=== PATIENT | male | born 1960 | race Caucasian/White ===

== ENCOUNTER 2025-01-15 23:35 | Emergency (ER) | payer MEDICARE, MEDICAID ==
[~2025-01-15] VITALS: Ht 185.4 cm; Wt 83.2 kg
[2025-01-16] MEDS: LIDOcaine 1% W/epiNEPHrine 1:100,000 20ml vial SQ ONE (00:23)
[2025-01-16 01:10] LABS: MEAN PLATELET VOLUME 6.8 FL (7.4-10.4); RED CELL DISTRIBUTION WIDTH 13.2 % (11.5-14.5)
[2025-01-16 01:11] LABS: CREATININE 0.85 MG/DL (0.60-1.10); TOTAL CARBON DIOXIDE 21.1 MMOL/L (24-32); eCRCL 99 ML/MIN; eGFR > 90 ML/MIN
[2025-01-16 02:47] VITALS: BP 118/80; PULSE 60; RESP 18; O2SAT 95
--- NOTE | 2025-01-16 04:18 | Physician Documentation ---
History of Present Illness ~ Chief Complaint: Mechanical Fall Stated Complaint: L ARM LAC Time Seen by MD: 23:42 Mode of Arrival: EMS HPI 64 year old male fell at home, struck left arm on furniture and sustained laceration to L forearm. No other injury, no head strike, is not on blood thinners, walked immediately afterward and reports no hip pain. Tetanus within 5 Years?: Yes Medication Reconciliation Allergies: Coded Allergies: No Known Allergies (Unverified , 01/15/25) Review of Systems All Other Systems at this time: Reviewed and Negative Physical Exam Vital Signs: RN Vital Signs have been reviewed: Yes, Temperature: 97.7, Source: Oral, Heart Rate: 60, Respiratory Rate: 18, BP: 118/80, Pulse Oximetry: 95, Weight: 83.180 Physical Exam HEENT: PERRL, moist oral mucosa, EOMI Pulmonary: No respiratory distress MSK: no deformity Skin: w/d/i, no rash; L forearm with 7cm full thickness laceration dorsally Neuro: alert, nonfocal Psych: normal affect Procedures Laceration Repair : Length (cm): 7 Anesthesia: Lidocaine w/ Epi Volume Anesthetic (mls): 10 Prep: irrigated by nurse Debrided: minimal Undermining: none Margins: revised Foreign Body: not identified Repaired: skin, subcutaneous Wound Repaired With: sutures Suture Size/Type: 4-0, ethilon Number of Superficial Sutures: 12 Layer Closure?: Yes Deep Layer Suture Size/Type: 4-0, vicryl Number Deep Layer Sutures: 6 Dressing Applied: simple Splint Applied?: No Sling Applied?: No Tolerated Procedure Well?: yes, no complications Procedure Note horizontal mattress technique Progress Results/Orders Results/Orders Orders - MELVINA DIA MD Urinalysis, Cult If Indicated (01/16/25 00:21) Completed Orders - MELVINA DIA MD Lidocaine 1% W/Epi 1:100,000 (Xylocaine (01/16/25 00:05) Cbc/Diff (01/16/25 00:21) CMP (01/16/25 00:21) Medications Received in ER Medications (Trade) Dose Ordered Sig/Betsy Route PRN Reason Start Time Stop Time Status Last Admin Dose Admin (Xylocaine 1%-EPI 1:100,000) 20 ml ONCE ONCE SQ 01/16/25 00:05 01/16/25 00:06 DC 01/16/25 00:23 20 ML Vital Signs 01/15/25 01/16/25 01/16/25 01/16/25 23:41 00:00 00:00 02:47 Temp 97.7 Pulse 60 60 60 Resp 14 18 16 18 B/P (MAP) 98/61 111/72 (85) 118/80 (93) Pulse Ox 94 99 95 Laboratory Tests Test 01/16/25 00:24 White Blood Count 6.8 Red Blood Count 4.36 L Hemoglobin 13.9 L Hematocrit 40.1 L Mean Corpuscular Volume 92.1 Mean Corpuscular Hemoglobin 31.8 H Mean Corpuscular Hemoglobin Concent 34.6 Red Cell Distribution Width 13.2 Platelet Count 170 Mean Platelet Volume 6.8 L Neutrophils (%) (Auto) 63.5 Lymphocytes (%) (Auto) 24.3 Monocytes (%) (Auto) 9.4 Eosinophils (%) (Auto) 2.3 Basophils (%) (Auto) 0.5 Neutrophils # (Auto) 4.3 Lymphocytes # (Auto) 1.7 Monocytes # (Auto) 0.6 Eosinophils # (Auto) 0.2 Basophils # (Auto) 0.0 CBC Comment Sodium Level 132 L Potassium Level 3.7 Chloride Level 99 Carbon Dioxide Level 21.1 L Anion Gap 12 Blood Urea Nitrogen 15 Creatinine 0.85 Estimated GFR/1.73 m2 > 90 BUN/Creatinine Ratio 17.6 Glucose Level 87 Calcium Level 8.8 Total Bilirubin 0.3 Aspartate Amino Transf (AST/SGOT) 18 Alanine Aminotransferase (ALT/SGPT) 14 Alkaline Phosphatase 73 Total Protein 6.8 Albumin 3.6 Globulin 3.2 Albumin/Globulin Ratio 1.1 Chemistry Comments Medical Decision Making Findings 64 year old male with laceration to L forearm. Cleansed and repaired without complication. Labs unremarkable. Will road test and d/c. Differential Dx:Considerations: Include: Closed head injury, Fracture(s), Contusion(s), Hematoma(s), Laceration(s) Departure Disposition: 01 HOME / SELF CARE / HOMELESS Impression: Primary Impression: Laceration Condition: Stable Discharge Instructions: Laceration Care, Adult Referrals: NO PRIMARY CARE PROVIDER (PCP) Education Educated: Patient Educated regarding: diagnosis, treatment, prognosis, need for follow up Signature Scribe Signature: . Attestation: . MELVINA DIA MD Jan 16, 2025 04:18
[2025-01-16 06:06] VITALS: TEMP 97.7
== END 2025-01-16 06:07 | disposition home or self-care (01) ==
LOC: ER 23:37 → EDBD 23:37 → ER 01-16 06:07
DX: S51.812A Laceration without foreign body of left forearm, initial encounter (principal); W08.XXXA Fall from other furniture, initial encounter; Y93.89 Activity, other specified; Y92.009 Unspecified place in unspecified non-institutional (private) residence as the place of occurrence of the external cause; Y99.8 Other external cause status
CPT/HCPCS: 12032; 36415; 80053; 85025; 99284; A6402; A6449; J3490; Z7610

== ENCOUNTER 2025-03-19 13:59 | Emergency (ER) | payer MEDICARE, MEDICAID ==
[~2025-03-19] VITALS: Ht 186.7 cm; Wt 88.1 kg
[2025-03-19 14:01] VITALS: TEMP 97.6
--- NOTE | 2025-03-19 14:17 | ELECTROCARDIOGRAPH REPORT ---
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
--- NOTE | 2025-03-19 14:40 | RADIOLOGY REPORT ---
CHEST RADIOGRAPH Indication: Stroke Alert Technique: Single frontal view of the chest was obtained Comparison: DI CHEST,SINGLE VIEW on DOS: 05/24/24, DI CHEST,SINGLE VIEW on DOS: 04/08/24, CHEST,SINGLE VIEW on DOS: 06/27/21 FINDINGS: Lines and Tubes: None Lungs: Bronchovascular crowding due to low lung volumes with diffuse interstitial prominence. Right-sided suggested neurostimulator is noted with the generator overlying the right chest wall and the wires / leads extending cephalad. Pleura: No effusion. No pneumothorax. Cardiomediastinal contours: Borderline cardiomegaly Bones: No acute osseous abnormality. Partially visualized thoracolumbar fixation hardware. IMPRESSION: Bronchovascular crowding due to low lung volume with possible underlying pulmonary vascular congestion/ atypical pneumonia.
[2025-03-19 14:44] LABS: MEAN PLATELET VOLUME 6.4 FL (7.4-10.4); RED CELL DISTRIBUTION WIDTH 13.0 % (11.5-14.5)
[2025-03-19 14:55] LABS: APTT 26 SECONDS (22-32); INR 1.0 INR
[2025-03-19 14:57] LABS: CREATININE 0.84 MG/DL (0.60-1.10); TOTAL CARBON DIOXIDE 28.9 MMOL/L (24-32); eCRCL 101 ML/MIN; eGFR > 90 ML/MIN
--- NOTE | 2025-03-19 17:50 | Physician Documentation ---
History of Present Illness ~ Chief Complaint: Dizziness Stated Complaint: WEAKNESS/SLURRED SPEECH Time Seen by MD: 17:17 Source: patient Mode of Arrival: EMS Exam Limitations: no limitations HPI Patient presents secondary to dizziness. He states he woke up with vertigo this morning. He has had right ear "tickling for the past two weeks. He was evaluated by his primary care provider and reported his ears looked normal. He states it feels like his head is spinning. No headaches. No fevers or chills. No shortness a breath. Does complain of tinnitus. No photophobia. Was asked, but otherwise denies review of systems. 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 No other neurologic symptoms reported. Was asked, but otherwise denies review of systems. Constitutional: Denies: chills, fever Eyes: Reports: no symptoms reported; Denies: blurred vision, double vision ENT: Reports: ear ringing; Denies: ear bleeding, ear discharge, hearing loss, nose pain, nose bleeding, nose congestion, throat pain, throat swelling Respiratory: Denies: cough, orthopnea, shortness of breath Cardiovascular: Reports: lightheadedness; Denies: chest pain, syncope, palp itations Gastrointestinal: Denies: abdominal pain, nausea, vomiting Neurological: Reports: dizziness; Denies: speech problem, headache, fainting, left sided numbness, right sided numbness, left sided weakness, right sided weakness Musculoskeletal: Reports: no symptoms reported Integumentary: Reports: no symptoms reported Allergic/Immunologic: Reports: no symptoms reported Hematologic/Lymphatic: Reports: no symptoms reported Physical Exam Vital Signs: RN Vital Signs have been reviewed: Yes, Temperature: 97.6, Source: Oral, Heart Rate: 63, Respiratory Rate: 19, BP: 139/88, Pulse Oximetry: 98, Kumar ght: 88.100 Oxygen Flow Rate: 0 Pulse Oximetry Reflects: adequate oxygenation Physical Exam General: Awake, alert, oriented. No apparent distress Neck: Supple. Normal range of motion. No JVD HEENT: Normocephalic. Pupils equal and reactive to light. There is no nystagmus. Ear exam. Bilateral external auditory canals are without erythema or swelling. Tympanic membrane is pearly obando with normal light reflex. There is no bulging of the tympanic membrane. Trachea is midline. Oropharynx is without erythema, cobblestoning. Uvula is midline and raises normally with phonation. Respiratory: Lungs are clear to auscultation bilaterally. No respiratory distress. Chest: Normal shape and size. No accessory muscle use. Cardiovascular: Regular rate and rhythm. S1-S2. No murmur, gallop, rub. Extremities: No lower extremity edema, cyanosis or clubbing. Neuro: Cranial nerves II-XII grossly intact. Motor strength 5/5 in all four extremities.Sensation symmetric and intact to light touch throughout. Finger to nose intact, heel to maher intact, and rapid alternating hand movement intact. No pronator drift. No Deficits were appreciated. Speech somewhat slow. Not slurred. Psychiatric: Normal mood and affect. Skin: Normal color. Warm and dry. Progress Results/Orders Results/Orders Vital Signs 03/19/25 03/19/25 03/19/25 03/19/25 14:01 14:28 14:29 15:00 Temp 97.6 Pulse 64 65 61 Resp 18 18 17 B/P (MAP) 139/89 132/85 (101) 143/123 (130) Pulse Ox 96 97 97 97 O2 Delivery Room Air* O2 Flow Rate 0 0 0 0 FiO2 21 03/19/25 03/19/25 03/19/25 03/19/25 15:15 15:30 15:58 16:01 Pulse 62 63 63 Resp 18 13 20 19 B/P (MAP) 140/91 (107) 159/98 (118) 139/88 (105) Pulse Ox 96 97 98 O2 Flow Rate 0 0 0 03/19/25 03/19/25 03/19/25 17:00 18:58 20:15 Pulse 66 69 Resp 20 19 18 B/P (MAP) 157/95 (115) 142/95 Pulse Ox 96 98 O2 Flow Rate 0 Laboratory Tests Test 03/19/25 14:26 White Blood Count 6.2 Red Blood Count 4.45 L Hemoglobin 14.2 Hematocrit 40.9 L Mean Corpuscular Volume 92.0 Mean Corpuscular Hemoglobin 31.9 H Mean Corpuscular Hemoglobin Concent 34.7 Red Cell Distribution Width 13.0 Platelet Count 191 Mean Platelet Volume 6.4 L Neutrophils (%) (Auto) 70.7 Lymphocytes (%) (Auto) 18.4 L Monocytes (%) (Auto) 9.8 Eosinophils (%) (Auto) 0.7 Basophils (%) (Auto) 0.4 Neutrophils # (Auto) 4.4 Lymphocytes # (Auto) 1.1 Monocytes # (Auto) 0.6 Eosinophils # (Auto) 0.0 Basophils # (Auto) 0.0 CBC Comment Prothrombin Time 10.4 INR International Normalized Ratio 1.0 Activated Partial Thromboplast Time 26 Coagulation Comments Sodium Level 133 L Potassium Level 4.3 Chloride Level 99 Carbon Dioxide Level 28.9 Anion Gap 5 L Blood Urea Nitrogen 13 Creatinine 0.84 Estimated GFR/1.73 m2 > 90 BUN/Creatinine Ratio 15.5 Glucose Level 95 Calcium Level 9.2 Total Bilirubin 0.4 Aspartate Amino Transf (AST/SGOT) 15 Alanine Aminotransferase (ALT/SGPT) 10 L Alkaline Phosphatase 77 Total Protein 7.2 Albumin 3.8 Globulin 3.4 Albumin/Globulin Ratio 1.1 Chemistry Comments EKG/XRAY/CT/US/VASC/MRI Chest X-Ray : Interpreted By: radiologist Views: 1 VIEW Indication: other Additional Comments [address] [address] DIAGNOSTIC RADIOLOGY Patient: JONAH GREEN Medical Record: [id number] [facility] 1960, Age: 65 Sex: Male Location: ER Patient Status: REG ER Service Date/Time: 03/19/25/ 1404 Ordering Physician: EDDIE GUZMAN MD Exam: CHEST,SINGLE VIEW CHEST RADIOGRAPH Indication: Stroke Alert Technique: Single frontal view of the chest was obtained Comparison: DI CHEST,SINGLE VIEW on DOS: 05/24/24, DI CHEST,SINGLE VIEW on DOS: 04/08/24, CHEST,SINGLE VIEW on DOS: 06/27/21 FINDINGS: Lines and Tubes: None Lungs: Bronchovascular crowding due to low lung volumes with diffuse inter stitial prominence. Right-sided suggested neurostimulator is noted with the generator overlying the right chest wall and the wires / leads extending cephalad. Pleura: No effusion. No pneumothorax. Cardiomediastinal contours: Borderline cardiomegaly Bones: No acute osseous abnormality. Partially visualized thoracolumbar fixation hardware. IMPRESSION: Bronchovascular crowding due to low lung volume with possible underlying pulmonary vascular congestion/ atypical pneumonia. Electronically Signed by:JANICE MORALES DO Date & Time: 03/19/251436 Dictated by: JANICE MORALES DO Dictation date and time: 03/19/251436 Primary Care Provider: NO PRIMARY CARE PROVIDER cc: EDDIE GUZMAN MD ~ CT : Interpreted By: radiologist CT: head With Contrast?: No Impression [address] [address] CAT SCAN Patient: JONAH GREEN Medical Record: [id number] [facility] 1960, Age: 65 Sex: Male Location: ER Patient Status: [facility] ER Service Date/Time: 03/19/251755 Ordering Physician: BLANQUITA TIPTON NP Exam: CT HEAD Procedure: [facility] Study Date and Requested Time: 03/19/2025 05:48 PM History: dizziness Comparison: CT CT HEAD on DOS: 09/30/24, CT HEAD on DOS: 06/27/21, CT HEAD on DOS: 08/11/20 report only Dose: CTDI: 64.43 mGy DLP: 1215.14 mGycm Technique: Multiplanar images obtained through the brain without intravenous contrast. Findings: Normal brain volume and formation. Mild chronic small vessel ischemic changes. Bilateral deep brain neuro stimulators are noted terminating of the inferior thalamus. There is left frontal lobe hypodensity adjacent to the deep brain stimulator which represent an area of encephalomalacia. No hemorrhages, masses, mass effect, midline shift, herniation or cytotoxic edema following a large vascular territory. No intra-axial or extra-axial fluid collections. No evidence of hydrocephalus. The basal cisterns are patent. The pituitary gland, sella and parasellar regions are unremarkable. The cerebellar tonsils are in normal position. The cerebellum is unremarkable. Bilateral enophthalmos. Otherwise, the orbits and globes are unremarkable. The paranasal sinuses and mastoids are clear. There are no worrisome calvarial lesions. Impression: No evidence of acute intracranial abnormality. Bifrontal lobe approach the brains neural stimulators are noted. Electronically Signed by:JANICE MORALES DO Date & Time: 03/19/25 182 Dictated by: JANICE MORALES DO Dictation date and time: 03/19/25 1756 Primary Care Provider: NO PRIMARY CARE PROVIDER cc: BLANQUITA TIPTON LEAK DETECTOR ~ Medical Decision Making Findings Patient presented with chief complaint of dizziness. New onset. Past medical history significant for Parkinson's disease. No previous history of vertigo but does state that he has had inner ear itching as well as symptoms of tinnitus. Suspect underlying vertigo. Low clinical suspicion for CVA. Acute intracranial pathology considered including mass, bleed ruled out with CT scan. Low clinical suspicion for cerebellar stroke based on his symptomology. Treated conservatively with meclizine. Encouraged to follow up with primary care paul rodriguez. If symptoms continue discussed need for physical therapy. Warning signs and symptoms were reviewed with patient. Shared decision-making was utilized and he wished to go home. The case was discussed with the attending physician, Dr teresa. The plan of care, diagnostic evaluation and medical decision making were discussed. The attending physician was available for consultation, where the diagnostic findings as well as the eventual disposition. Differential Dx:Considerations: Include: anemia, CVA, dehydration, dysrhythmia, electrolyte imbalance, encephalopathy, Guillain-Idalou, hypoglycemia, hypotensio n, hypovolemia, labyrinthitis, Meniere's disease, myasathenia gravis, myocardial infarction, TIA, vertigo central, vertigo peripheral, vestibular neuronitis Departure Impression: Primary Impression: Vertigo Condition: Stable Discharge Instructions: Dizziness Additional Instructions: Your head CT was without intracranial evidence of abnormality. I suspect vertigo. If your symptoms continue you may need physical therapy. Please follow up with your primary care provider. 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 The patient has vertigo with a appears to be peripheral in nature. The patient did get some relief from meclizine. I will prescribe the patient meclizine and Zofran. The patient will be Signature Scribe Signature: no scribe Attestation: The note accurately reflects work and decisions made by me.Blanquita Tipton - ANASTACIA 03/20/25 16:10 This note was created with the assistance of voice recognition software whereby errors in grammar, syntax, and/or spelling may have occurred despite active proofreading efforts by the author. Please do not hesitate to contact the provider for clarification or for questions regarding the content of this document. BLANQUITA TIPTON NP Mar 19, 2025 17:50 BERNA TERESA MD Mar 19, 2025 20:06
--- NOTE | 2025-03-19 18:28 | RADIOLOGY REPORT ---
Procedure: [facility] Study Date and Requested Time: 03/19/2025 05:48 PM History: dizziness Comparison: CT CT HEAD on DOS: 09/30/24, CT HEAD on DOS: 06/27/21, CT HEAD on DOS: 08/11/20 report only Dose: CTDI: 64.43 mGy DLP: 1215.14 mGycm Technique: Multiplanar images obtained through the brain without intravenous contrast. Findings: Normal brain volume and formation. Mild chronic small vessel ischemic changes. Bilateral deep brain neuro stimulators are noted terminating of the inferior thalamus. There is left frontal lobe hypodensity adjacent to the deep brain stimulator which represent an area of encephalomalacia. No hemorrhages, masses, mass effect, midline shift, herniation or cytotoxic edema following a large vascular territory. No intra-axial or extra-axial fluid collections. No evidence of hydrocephalus. The basal cisterns are patent. The pituitary gland, sella and parasellar regions are unremarkable. The cerebellar tonsils are in normal position. The cerebellum is unremarkable. Bilateral enophthalmos. Otherwise, the orbits and globes are unremarkable. The paranasal sinuses and mastoids are clear. There are no worrisome calvarial lesions. Impression: No evidence of acute intracranial abnormality. Bifrontal lobe approach the brains neural stimulators are noted.
[2025-03-19] MEDS ORDERED: ONDA-243 PO (20:06)
[2025-03-19] MEDS ORDERED: MECL-302 PO (20:06)
[2025-03-19 20:15] VITALS: BP 142/95; PULSE 69; RESP 18; O2SAT 98
== END 2025-03-19 20:37 | disposition home or self-care (01) ==
LOC: ER 14:00
DX: R42 Dizziness and giddiness (principal); R06.02 Shortness of breath; G20.A1 Parkinson's disease without dyskinesia, without mention of fluctuations; Z87.891 Personal history of nicotine dependence
CPT/HCPCS: 36415; 70450; 71045; 80053; 85025; 85610; 85730; 93005; 99285; J8597